=== PATIENT | male | born 1960 | race Hispanic/Latino ===

== ENCOUNTER → 2019-12-11 | Outpatient (CLI) | payer MEDICARE ==
[~2019-12-11] MED LIST: AZAT50TA GT; LABE200T5 GT; OMEP-272 GT; atorvastatin GT
== END | disposition home or self-care (01) ==
LOC: SHCH 15:31
PROVIDERS: ATTEND Internal Medicine Cardiovascular Disease
DX: I50.22 Chronic systolic (congestive) heart failure (principal)
CPT/HCPCS: 93306

== ENCOUNTER → 2020-01-08 | Outpatient (CLI) | payer MEDICARE | END | disposition home or self-care (01) | LOC: RAH 13:29 | PROVIDERS: ATTEND Internal Medicine | DX: M79.661 Pain in right lower leg (principal); M79.89 Other specified soft tissue disorders | CPT/HCPCS: 93971 ==

== ENCOUNTER 2021-04-18 08:57 | Day surgery (SDC) | payer MEDICARE ==
[2021-04-14 12:52] LABS: BASOPHILS % (AUTO) 0.6 % (0.0-5.0); EOSINOPHILS % (AUTO) 2.5 % (0.0-8.0); HEMATOCRIT 33.8 % (42-54); MEAN CORPUSCULAR HEMOGLOBIN 34.4 pg (27.0-33.0); MEAN CORPUSCULAR HGB CONC 33.7 g/dL (32.0-36.0); MEAN CORPUSCULAR VOLUME 102.1 fL (79-99); NEUTROPHILS % (AUTO) 81.4 % (40.0-77.0); PLATELET COUNT (AUTO) 132 K/uL (130-400); RED BLOOD CELL COUNT(AUTO) 3.31 MIL/uL (4.50-6.20); RED CELL DISTRIBUTION WIDTH 14.1 % (11.0-15.5); WHITE BLOOD COUNT (AUTO) 6.3 K/uL (4.8-10.8)
[2021-04-14 13:08] LABS: CREATININE 4.7 mg/dL (0.5-1.5); INR 1.03 (0.85-1.15); POTASSIUM 4.1 mmol/L (3.5-5.1); PROTHROMBIN TIME 11.2 SEC (9.6-11.6)
[2021-04-14 13:10] LABS: PARTIAL THROMBOPLASTIN TIME 26.1 SEC (26.3-35.5)
[2021-04-17 17:02] VITALS: BP 137/57
[~2021-04-18] VITALS: Ht 167.6 cm; Wt 83.1 kg
[2021-04-18] VITALS (9 sets, daily range): BP systolic 112–170; BP diastolic 44–80
[~2021-04-18 08:57] MED LIST changes: +AEC81 PO; +ALBUHFA IH; +ATOR40TA69 PO; +AURYXIA PO; -AZAT50TA GT; +AZAT50TA PO; +CARV12.511 PO; +CLOP75TA32 PO; +FOLI0.8T2 PO; -LABE200T5 GT; -OMEP-272 GT; +OMEP40CA13 PO; +UMEC1DIS IH; -atorvastatin GT
[2021-04-18] MEDS ORDERED: SODIUM CHLORIDE 0.9% 1000ML 1,000 ML IV ONE (09:13)
[2021-04-18] MEDS ORDERED: SODIUM BICARB 50MEQ 50ML VIAL 50 ML ONE (11:57)
[2021-04-18] MEDS ORDERED: LIDOCAINE HCL 2% 20ML ONE (11:57)
== END 2021-04-18 17:15 | disposition home or self-care (01) ==
LOC: DAH 08:57
PROVIDERS: ATTEND Internal Medicine Cardiovascular Disease
DX: I25.10 Atherosclerotic heart disease of native coronary artery without angina pectoris (principal); K21.9 Gastro-esophageal reflux disease without esophagitis; I13.2 Hypertensive heart and chronic kidney disease with heart failure and with stage 5 chronic kidney disease, or end stage renal disease; N18.6 End stage renal disease; I50.22 Chronic systolic (congestive) heart failure; Z95.5 Presence of coronary angioplasty implant and graft; Z88.0 Allergy status to penicillin; Z88.1 Allergy status to other antibiotic agents; Z91.041 Radiographic dye allergy status; Z79.82 Long term (current) use of aspirin; Z79.899 Other long term (current) drug therapy
CPT/HCPCS: 36415; 71045; 80048; 85025; 85610; 85730; 93005; 93451; A4215; A4216; A4221; A4222; A4223 ×3; A4606; A4663; C1769; C1894 ×2; J1644; J3490 ×2; J7030